=== PATIENT | female | born 1960 | race African-American/Black ===

== ENCOUNTER 2022-04-15 03:28 | Emergency (ER) | payer OTHER ==
[2022-04-15 03:44] VITALS: RESP 18; TEMP 98.2; BMI 31.3
[2022-04-15] MEDS ORDERED: SODIUM CHLORIDE 0.9% 500 ML INFUS.BAG IV ONE (03:59)
[2022-04-15 05:23] LABS: CALCIUM 9.2 mg/dL (8.5-10.1)
[2022-04-15 05:24] LABS: ALBUMIN 3.5 g/dl (3.4-5.0); BLOOD UREA NITROGEN 15.4 mg/dL (7-18); MAGNESIUM 1.7 mg/dL (1.8-2.4)
[2022-04-15 05:27] LABS: BASO % 1.1 % (0-2.0); CREATININE 0.8 mg/dL (0.55-1.3); EOS % 1.6 % (0-4.5); HEMATOCRIT 40.2 % (32.4-45.2); LYMPH % 40.1 % (8-40); MCH 27.1 pg (25.7-33.7); MCHC 32.4 g/dl (32.0-36.0); MEAN CELL VOLUME 83.8 fl (80-96); MEAN PLT VOLUME 8.9 fl (7.5-11.1); MONO % 10.7 % (3.8-10.2); NEUT % 46.5 % (42.8-82.8); PLATELET COUNT 232 10^3/uL (134-434); RBC 4.79 M/mm3 (3.60-5.2); RDW 14.2 % (11.6-15.6); WHITE BLOOD COUNT 4.8 K/mm3 (4.0-10.0)
[2022-04-15 05:29] LABS: BILIRUBIN,TOTAL 0.1 mg/dL (0.2-1)
[2022-04-15] MEDS ORDERED: MAGNESIUM OXIDE 400 MG TABLET (FP) PO ONE (05:41)
[2022-04-15 05:42] VITALS: BP 145/95; PULSE 88
[2022-04-15] MEDS ORDERED: MAGNESIUM OXIDE 400 MG TABLET (FP) ONE (05:49)
[2022-04-15 07:43] LABS: ACTIVATED PTT 30.8 SECONDS (25.2-36.5); INR 1.11 (0.83-1.09); PROTHROMBIN TIME (PATIENT) 12.9 SEC (9.7-13.0)
== END 2022-04-15 06:09 | disposition home or self-care (01) ==
LOC: JER 03:28
DX: R00.2 Palpitations (principal); E83.42 Hypomagnesemia; R94.6 Abnormal results of thyroid function studies
CPT/HCPCS: 0241U-QW; 36415; 71046-TC-FY; 80053; 82550; 83735; 84439; 84443; 84484; 85025; 85610; 85730; 93005; 93010; 99285-25